=== PATIENT | female | born 1935 | race Caucasian/White ===

== ENCOUNTER → 2016-08-01 | Outpatient (CLI) | payer OTHER, BC | LOC: BHCLAF 13:15 | PROVIDERS: ATTEND Internal Medicine Cardiovascular Disease | DX: I48.91 Unspecified atrial fibrillation (principal); I47.1 Supraventricular tachycardia | CPT/HCPCS: 93005-PO ==

== ENCOUNTER → 2016-08-10 | Outpatient (CLI) | payer OTHER, BC | LOC: BHFA 09:00 | PROVIDERS: ATTEND Internal Medicine Cardiovascular Disease | DX: I48.91 Unspecified atrial fibrillation (principal) ==

== ENCOUNTER → 2016-09-11 | Outpatient (CLI) | payer OTHER, BC | LOC: FIMAGING 07:43 | DX: Z12.31 Encounter for screening mammogram for malignant neoplasm of breast (principal); Z85.3 Personal history of malignant neoplasm of breast | CPT/HCPCS: G0202 ==

== ENCOUNTER → 2017-08-03 | Outpatient (CLI) | payer OTHER, BC | LOC: FIMAGING 13:03 | PROVIDERS: ATTEND Internal Medicine Endocrinology, Diabetes & Metabolism | DX: Z13.820 Encounter for screening for osteoporosis (principal); M85.89 Other specified disorders of bone density and structure, multiple sites; M41.80 Other forms of scoliosis, site unspecified; Z85.3 Personal history of malignant neoplasm of breast ==

== ENCOUNTER 2017-08-21 08:22 | Observation (INO) | payer OTHER, BC ==
--- NOTE | 2017-08-16 23:53 | GDS ---
[f rep st] DISCHARGE SUMMARY CURRENT COMPLAINT: Right knee pain. HISTORY OF PRESENT ILLNESS: The patient is an 82-year-old female with a long history of right knee pain despite multiple conservative management. She wishes to have surgery in order to resolve the problem. ALLERGIES: To drugs include Zantac. CURRENT MEDICATIONS: Aspirin, Cartia, levothyroxine. CURRENT MEDICAL PROBLEMS: Include anemia, arthritis, cancer, heart disease, osteoporosis, and thyroid problems. PAST SURGICAL HISTORY: Prior surgeries include a cardioversion, lumpectomy, left total knee, myxoma removal. SOCIAL HISTORY: She is a former smoker. Social drinker. PHYSICAL EXAMINATION: EYES: Pupils are equal, round, and reactive to light. CHEST: Clear to auscultation. HEART: Regular rate and rhythm. ABDOMEN: Soft and nontender. EXTREMITIES: Her right knee reveals crepitus to the medial compartment, as well as osteophytic spurring and mild varus . IMAGING STUDIES: X-ray exam reveals [id number] osteoarthritic changes. ASSESSMENT AND PLAN: The patient right knee osteoarthritis. The plan is to take her to the operating room and undergo a right total knee arthroplasty. /[id number]/MODL MTDD
--- NOTE | 2017-08-21 07:18 | PDHPUP ---
History & Physical Update H&P update statement: This history and physical update is based on an assessment of the patient which was completed after admission or registration (within 24 hours), but prior to the surgery/procedure. H&P update: H&P reviewed & patient examined, no change in patient's condition since H&P completed
[~2017-08-21 08:22] MED LIST: BACITRACIN 50,000 UNITS/10 ML SYR IRR ONE; BUPIVACAINE/EPI 0.5% 30 ML SDV ONE; CALCIUM CHLORIDE 1 GM/10 ML INJ ONE; POLYMYXIN B SULFATE 500,000 UNIT/10 ML SYR IRR ONE; ROPIVACAINE 0.2% 80 MG, EPINEPHrine 0.2 MG, KETOROLAC TROMETHAMINE 30 MG, morphINE 10 M... IU ONE; THROMBIN (BOVINE) 5,000 UNIT VIAL TP ONE; TRANEXAMIC ACID 3,000 MG in NS (SYRINGE) 50 ML IRR ONE; ceFAZolin 2 GM/SWFI 2 GM/20 ML SYR IVP ONE
[2017-08-21] MEDS ORDERED: LR 1,000 ML IV ONE (08:47)
[2017-08-21] MEDS ORDERED: ceFAZolin 2 GM/SWFI 20 ML SYR IVP ONE (09:39)
[2017-08-21] MEDS ORDERED: MIDAZOLAM 2 MG/2 ML VIAL IVP ONE (10:11)
--- NOTE | 2017-08-21 10:11 | PDANEPAE ---
ANE History of Present Illness here for R TKA ANE Past Medical History - Cardiovascular History Hx Hypertension: No Hx Arrhythmias: Yes Hx Chest Pain: No Hx Coronary Artery / Peripheral Vascular Disease: No Hx CHF / Valvular Disease: No Hx Palpitations: No Cardiovascular History Comment: PSVT AND ATRIAL FLUTTER. PAC'S - Pulmonary History Hx COPD: No Hx Asthma/Reactive Airway Disease: No Hx Recent Upper Respiratory Infection: No Hx Oxygen in Use at Home: No Hx Sleep Apnea: No Sleep Apnea Screening Result - Last Documented: Negative Pulmonary History Comment: INTERMITTENT DYSPNEA WITH EXERTION - Neurologic History Hx Cerebrovascular Accident: No Hx Seizures: No Hx Dementia: No - Endocrine History Hx Diabetes: No Endocrine History Comment: HYPOTHYROID - Renal History Hx Renal Disorders: No - Liver History Hx Hepatic Disorders: No - Neurological & Psychiatric Hx Hx Neurological and Psychiatric Disorders: No - Cancer History Hx Cancer: Yes Cancer History Comment: BREAST. RADIATION AND CHEMO - Congenital Disorder History Hx Congenital Disorders: No Congenital History Comment: Breast cancer - GI History Hx Gastrointestinal Disorders: Yes Gastrointestinal History Comment: CONSTIPATION - Other Health History Other Health History: DERMATITIS VARIOUS LOCATION - Chronic Pain History Chronic Pain: Yes (LT KNEE) - Surgical History Prior Surgeries: ABLATION X 2 08/2013 AND 12/2014. PARATHYROIDECTOMY. 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 TONSILLECTOMY. RT BREAST LUMPECTOMY 2006 ANE Review of Systems Review of Systems: - Exercise capacity METS (RN): 4 METS ANE Patient History - Allergies Allergies/Adverse Reactions: ranitidine HCl [From Zantac] Allergy (Mild, Verified 03/28/13 11:49) Rash - Home Medications Home Medications: Cyanocobalamin [Vitamin B12 1000MCG/ML (*)] 100 mcg IM Q30D 09/08/13 [Last Taken 08/14/17] Levothyroxine [Synthroid 88 mcg (*)] 88 mcg PO DAILY06 09/08/13 [Last Taken 05:30] Loratadine [Claritin 10 mg] 10 mg PO DAILY 09/08/13 [Last Taken 1 Day Ago ~08/20] Diltiazem Cd [Cardizem ER 120 MG (*)] 120 mg PO HS 12/30/13 [Last Taken 1 Day Ago ~08/20/17] Aspirin [Aspirin 81mg (*)] 81 mg PO DAILY 08/02/17 [Last Taken 08/14/17] Cholecalciferol Vit D3 [Vitamin D3 (*)] 1,000 units PO DAILY 08/02/17 [Last Taken 08/14/17] Glucosamine/Chondroitin [Glucosamine/Chondroitin (*)] 1 each PO BID 08/02/17 [ Last Taken 08/14/17] Herbals/Supplements -Info Only 1 ea PO DAILY 08/02/17 [Last Taken 08/14/17] - NPO status NPO Since - Liquids (Date): 08/21/17 NPO Since - Liquids (Time): 07:30 NPO Since - Solids (Date): 08/20/17 NPO Since - Solids (Time): 18:00 - Smoking Hx Smoking Status: Never smoked - Family Anes Hx Family Hx Anesthesia Complications: none ANE Labs/Vital Signs - Vital Signs Blood Pressure: 124/89 Heart Rate: 64 Respiratory Rate: 18 O2 Sat (%): 94 Height: 165.1 cm Weight: 72.575 kg ANE Physical Exam - Airway Neck exam: FROM Mallampati Score: Class 1 Mouth exam: normal dental/mouth exam - Pulmonary Pulmonary: no respiratory distress - Cardiovascular Cardiovascular: regular rate and rhythym - ASA Status ASA Status: II ANE Anesthesia Plan Anesthesia Plan: spinal Regional Anesthesia: adductor canal FNB
[2017-08-21] MEDS ORDERED: MIDAZOLAM 2 MG/2 ML VIAL ONE (10:17)
[2017-08-21] MEDS ORDERED: fentaNYL 100 MCG/2 ML INJ ONE ×3 (10:21→13:11)
[2017-08-21] MEDS ORDERED: PROPOFOL/EMULSION 500 MG/50 ML BOTTLE IV ONE (10:21)
[2017-08-21] MEDS ORDERED: oxyCODONE IR 5 MG TAB PO PRN ×2 (11:26→12:27)
[2017-08-21] MEDS ORDERED: HYDROmorphONE/DILAUDID 2 MG/ML INJ IVP PRN (11:26)
[2017-08-21] MEDS ORDERED: NALOXONE HCL 0.4 MG/ML INJ IVP PRN (11:26)
[2017-08-21] MEDS ORDERED: ONDANSETRON 4 MG/2 ML VIAL IVP PRN (11:26)
[2017-08-21] MEDS ORDERED: DEXAMETHASONE 4 MG/ML VIAL IVP PRN (11:26)
[2017-08-21] MEDS ORDERED: HYDROCODONE/APAP 5/325 TAB PO PRN (11:26)
--- NOTE | 2017-08-21 12:26 | POSTOPPROG ---
Post Op Note Date of Operation: 08/21/17 Surgeon: Dominga Dixon Battery Filler: kayla Anesthesiologist: antione Anesthesia: Epidural, IV Sedation Pre-op Diagnosis: r knee oa Procedure: r tkr Inf/Abcess present in the surg proc area at time of surgery?: No Depth: Deep Incisional (Fascial) EBL: 100-500
[2017-08-21] MEDS ORDERED: BISACODYL 10 MG SUPP PR PRN (12:27)
[2017-08-21] MEDS ORDERED: POLYETHYLENE GLYCOL 3350 17 GM PKT PO PRN (12:27)
[2017-08-21] MEDS ORDERED: LACTULOSE 20 GM/30 ML UDCUP PO PRN (12:27)
[2017-08-21] MEDS ORDERED: ONDANSETRON DISINTEGRATING 4 MG TAB PO PRN (12:27)
[2017-08-21] MEDS ORDERED: METOCLOPRAMIDE 10 MG/2 ML VIAL IVP PRN (12:27)
[2017-08-21] MEDS ORDERED: PROMETHAZINE HCL 25 MG/ML INJ IVP PRN (12:27)
[2017-08-21] MEDS ORDERED: CYCLOBENZAPRINE 10 MG TAB PO PRN (12:27)
[2017-08-21] MEDS ORDERED: TEMAZEPAM 15 MG CAP PO PRN (12:27)
[2017-08-21] MEDS ORDERED: DIPHENOXYLATE/ATROPINE LOMOTIL 1 TAB PO PRN (12:27)
[2017-08-21] MEDS ORDERED: TAPENTADOL HCL 50 MG TAB PO PRN (12:27)
[2017-08-21] MEDS ORDERED: diphenhydrAMINE 25 MG CAP PO PRN (12:27)
[2017-08-21] MEDS ORDERED: KETOROLAC 30 MG/1 ML SDV IVP PRN (12:27)
[2017-08-21] MEDS ORDERED: MAGNESIUM HYDROXIDE 30 ML UDCUP PO PRN (12:27)
[2017-08-21] MEDS ORDERED: PROMETHAZINE HCL 25 MG SUPPR PR PRN (12:27)
[2017-08-21] MEDS ORDERED: KETOROLAC 15 MG/1 ML SDV ONE (13:11)
[2017-08-21] MEDS: fentaNYL 100 MCG/2 ML INJ IVP PRN ×2 (13:12→13:22)
[2017-08-21] MEDS ORDERED: ONDANSETRON 4 MG/2 ML VIAL ONE (13:24)
--- NOTE | 2017-08-21 13:24 | GOP ---
[f rep st] OPERATIVE REPORT DATE OF OPERATION: 08/21/2017 SURGEON: Dominga Dixon MD SUPPLY SPECIALIST: Maynor Alva, JOSEA, LSA, whose presence was medically necessary. ANESTHESIA: Epidural plus sedation. PREOPERATIVE DIAGNOSIS: Right knee osteoarthritis. POSTOPERATIVE DIAGNOSIS: Right knee osteoarthritis. PROCEDURE PERFORMED: Right total knee arthroplasty. FINDINGS: INDICATIONS: This is an 82-year-old female with a several-year history of right knee pain worsening with use and with time despite multiple conservative measures. X-ray exam reveals [id number] osteo arthritic changes. She wishes to have surgery in order to resolve the problem. DESCRIPTION OF PROCEDURE: Patient was brought to the operating room after the right side had been id entified as the correct side by the patient, nurse, and physician. Once in the operating room, she w as placed under epidural nerve block, then IV sedation. She was then placed supine on the operating table. Tourniquet was placed around the upper portion of the right thigh. Right lower extremity was then sterilely prepped and draped in usual fashion using GSI solution. Once prepped and draped, oliveira b was exsanguinated, and tourniquet inflated to 250 mmHg. A linear incision was made on the anterior portion of the knee 1 handbreadth above and below the patella, with sharp dissection carried down th rough the skin and subcutaneous layers, with bleeding controlled using electrocautery. A medial para patellar approach was made through the extensor mechanism, with patella brought to the side but not e verted. She was noted to have [id number] osteoarthritic changes of the patellofemoral compartment, and the medial compartment, and grade III chondral changes laterally. The ACL, as well as the media l and lateral menisci were removed, as well as osteophytes at the femur. A drill hole was made 1 cm anterior to the intercondylar notch with an intramedullary guide placed within the femur. The cuttin g guide was set in 5 degrees of valgus and set to remove 10 mm of bone. Once pinned into place, the intramedullary guide was removed. An oscillating saw was used to remove the distal end of the femur until achieving a flat cut. Cartilage was then taken off the posterior condyles, and a sizing guide was placed on the cut surface of the femur, noting a size 7 seemed to fit best. Therefore, drill hol es were made, and a size 7 4-in-1 cutting block was put into place. The anterior, posterior, and luis m mfer cuts were made. A size 7 trial was put into place, noted to fit securely. The leg was able to achieve near full extension. Trial was removed. The knee was brought back to maximal flexion, and the tibia was subluxed anterior ly. An external tibial guide was put into place and set in neutral varus-valgus and slight posterior slope. Once it was pinned into place, the was re-used to ensure proper positioning. Cut ting guide was put into place. An oscillating saw was used to removed the proximal portion of the ti yrn. Trial femur, tibia, and poly liner were put into place. The knee was able to achieve full exte nsion; therefore, the trials were removed. The knee was brought to maximal flexion, and tibia sublux ed anteriorly. Multiple trials were placed on the tibia, and a size 6 seemed to fit best. Therefore , a size 6 plate was pinned into place. Guide was then put into place, and the intramedullary reamer and a keel punch were then passed through the guides into the tibia. The trials were then removed. The leg was brought to full extension. The patella was then everted a nd was measured to be 20 mm in thickness. Oscillating saw was used to remove the posterior portion o f the patella, leaving 14 mm of bone. A 38 mm trial seemed to fit best; therefore, lug holes drilled for a 38 mm patellar button. All cut surfaces of bone were then thoroughly irrigated with an antibi otic solution using pulsatile lavage while cement was being mixed. Once cement was doughy, it was pl aced on the proximal portion of the tibia with a size 6 Attune tibial component from DeP[employer] put into p lace. Cement was placed on the posterior skids of the femoral component with cement placed on the di stal anterior portion of the cut surface of the bone, and a size 7 right cruciate-retaining Attune co mponent from [employer] was put in place. Excess cement was removed using Bovina elevator. A poly-liner w as placed in the tibial tray, and the knee was brought to full extension under pressurized cement. C ement was placed on the cut surface of the patella, with a 38 mm patellar button clamped into place a nd excess cement removed using Bovina elevator. Once completed, any excess cement was removed using a combination of osteotome and rongeur. Once hardened, multiple trials were placed in the tray, notin g that a 10 mm polyethylene liner seemed to fit best. It was therefore snapped into place. The tour niquet was released at 62 minutes. Bleeding was controlled using electrocautery. Tranexamic acid wa s irrigated through the wound. The wound was then closed with 0 Vicryl suture for the extensor mecha nism. The posterior capsule and extensor mechanism had been injected with joint cocktail. Once the extensor mechanism was closed, Plasma Gel was injected intra-articularly. 0 Vicryl and 2-0 Vicryl gonzalez ture were used to close the subcutaneous layers, and Plasma Gel was injected external to the extensor mechanism, and then a 3-0 V-Loc suture in a running subcuticular stitch was used to close the skin. The wound was dressed with Steri-Strips, Xeroform, 4x4's, and wrapped in Kerlix. Leg was completely undraped in the operating room, tourniquet removed from the thigh, and Edgardo wrap placed around the kn ee. Patient was then awakened, transferred onto a stretcher, and sent to recovery room in good condi tion. TOURNIQUET TIME: 62 minutes. /[id number]/MODL
[2017-08-21] MEDS: ONDANSETRON 4 MG/2 ML VIAL IVP PRN ×2 (14:03→18:34)
[2017-08-21] MEDS: LR 1,000 ML IV SCH ×2 (14:03→21:59)
--- NOTE | 2017-08-21 15:34 | POSTANESTH ---
Post Anesthetic Evaluation Cardiovascular Status: Normal, Stable Respiratory Status: Normal, Stable Level of Consciousness/Mental Status: Can Participate in Eval Pain Control: Adequate, Prn Tx Ordered, Inadeq, Add Tx Required Nausea/Vomiting Control: Inadeq, Add Tx Reqired (some N/V otherwise doing well) Complications Possibly Related to Anesthesia: None Noted
[2017-08-21] MEDS: ceFAZolin 2 GM/SWFI 2 GM/20 ML SYR IVP SCH (17:32)
[2017-08-21] MEDS: ACETAMINOPHEN 325 MG TAB PO SCH (18:06)
[2017-08-21] MEDS: traMADol 50 MG TAB PO SCH (18:07)
[2017-08-21] MEDS ORDERED: DILTIAZEM CD 120 MG CAP PO SCH (21:00)
[2017-08-21] MEDS: FAMOTIDINE 20 MG TAB PO SCH (22:00)
[2017-08-21] MEDS: SENNOSIDES/DOCUSATE SODIUM TAB PO SCH (22:00)
[2017-08-22] MEDS: ACETAMINOPHEN 325 MG TAB PO SCH ×3 (00:03→12:08)
[2017-08-22] MEDS: traMADol 50 MG TAB PO SCH ×3 (00:03→12:08)
[2017-08-22] MEDS: ceFAZolin 2 GM/SWFI 2 GM/20 ML SYR IVP SCH (01:42)
[2017-08-22] MEDS ORDERED: LEVOTHYROXINE 88 MCG TAB PO SCH (06:00)
[2017-08-22] MEDS: FAMOTIDINE 20 MG TAB PO SCH (08:52)
[2017-08-22] MEDS: SENNOSIDES/DOCUSATE SODIUM TAB PO SCH (08:53)
[2017-08-22] MEDS ORDERED: CETIRIZINE 10 MG TAB PO SCH (09:00)
[2017-08-22] MEDS ORDERED: RIVAROXABAN 10 MG TAB PO SCH (09:00)
[2017-08-22] MEDS ORDERED: NON-FORMULARY NEW DRUG (Loratadine [Claritin 10 Mg] 10 MG) PO SCH (09:00)
--- NOTE | 2017-08-22 10:18 | SOAPPROG ---
SOLISA Progress Note Assessment/Plan: Assessment: Plan: - d/c home 08/22/17 10:18 Subjective: Doing well, pain improved. Objective: Vital Signs Temp Pulse Resp BP Pulse Ox 36.7 C 55 L 14 119/56 L 100 08/22/17 07:11 08/22/17 07:11 08/22/17 07:11 08/22/17 07:11 08/22/17 07:11 Laboratory Results 08/22/17 04:58 08/21/17 08/22/17 08/23/17 05:59 05:59 05:59 Intake Total 3000 Output Total 1150 Balance 1850 wound cdi, nvi - Time Spent With Patient Time Spent With Patient: 15 - Pending Discharge Pending Discharge Within 24 Hours: Yes Pending Discharge Within 48 Hours: No Pending Discharge Date: 08/23/17 Pending Discharge Time: 11:00 ICD10 Worksheet Patient Problems: Problems Problem Status Onset Atrial fibrillation or flutter Acute
--- NOTE | 2017-08-22 10:24 | PDIAF ---
- Diagnosis Code Status: Full Code - Medication Management Discharge Medications: Medications to Continue on Transfer Cyanocobalamin [Vitamin B12 1000MCG/ML (*)] 100 mcg IM Q30D 09/08/13 [Last Taken 08/19/17] Levothyroxine [Synthroid 88 mcg (*)] 88 mcg PO DAILY06 09/08/13 [Last Taken 05:30] Loratadine [Claritin 10 mg] 10 mg PO DAILY 09/08/13 [Last Taken 1 Day Ago ~08/20] Diltiazem Cd [Cardizem ER 120 MG (*)] 120 mg PO HS 12/30/13 [Last Taken 1 Day Ago ~08/20/17] Aspirin [Aspirin 81mg (*)] 81 mg PO DAILY 08/02/17 [Last Taken 08/14/17] Cholecalciferol Vit D3 [Vitamin D3 (*)] 1,000 units PO DAILY 08/02/17 [Last Taken 08/14/17] Glucosamine/Chondroitin [Glucosamine/Chondroitin (*)] 1 each PO BID 08/02/17 [ Last Taken 08/14/17] Herbals/Supplements -Info Only 1 ea PO DAILY 08/02/17 [Last Taken 08/14/17] Acetaminophen [Tylenol 325mg (*)] 650 mg PO Q6HRS tab 08/22/17 [Last Taken Unknown] Rivaroxaban [Xarelto 10mg (*)] 10 mg PO DAILY tab 08/22/17 [Last Taken Unknown] traMADol [Ultram 50 mg (*)] 50 mg PO Q6HRS tab 08/22/17 [Last Taken Unknown] Discharge Medications: Refer to the Discharge Home Medication list for PRN reason. PICC Care - Routine: N/A - Orders Services needed: Physical Therapy Isolation Type: None Diet Recommendation: no restrictions on diet Diet Texture: Regular Texture Diet Wound Care Instructions: keep dressing on, will change in office, keep dry - Follow Up Care Current Providers and Referrals: Nena Thomas MD [Primary Care Provider] -
[2017-08-22 11:48] VITALS: BP 112/57
--- NOTE | 2017-08-22 11:48 | ASMTLACE ---
KELSEY Length of stay for Answers: 1 day current admission Comorbidities - select Answers: Opioid dependence all that apply / Chronic pain # of Emergency department Answers: 0 visits in the last 6 months Score: 5 Date Signed: 08/22/2017 11:47 AM Electronically Signed By:NAT Schwarz
--- NOTE | 2017-08-22 11:53 | ASMTCMCOM ---
CM Note CM Note Notes: Pt s/p OA of knee. PT rec [facility]HC, pt agreeable and chooses [facility]. Orders sent in [employer]. Pt address/phone verified. Date Signed: 08/22/2017 11:52 AM Electronically Signed By:NAT Schwarz
--- NOTE | 2017-08-22 15:49 | ASDISCHSUM ---
Discharge Information Plan Status:Home with Home Health Medically Cleared to Leave: Discharge Date:08/22/2017 02:13 PM D/C Disposition:Home Health Service ADT D/C Disposition:Home, Routine, Self-Care Projected Discharge Date:08/22/2017 11:00 AM Transportation at D/C: Discharge Delay Reason: Follow-Up Date:08/22/2017 11:00 AM Discharge Slot: Final Diagnosis: Placement Information Referral Type:*Home Health Care Services Referral ID:[id number] Provider Name:[facility] [place] Address 1:[address] [address] Address 2: City:[place] Selection Factors: State:[place] Patient Contact Information Contact Name:ELANA Relationship:Daughter Address: City:[place] Alternate Phone: State/Zip Code:[place] [address] Email: Financial Information Financial Class:Medicare Primary Plan Desc:MEDICARE INPATIENT Primary Plan Number:[id number] Secondary Plan Desc: OUT OF [facility] Secondary Plan Number:[id number] Assessment Information LACE LACE Length of stay for Answers: 1 day current admission Comorbidities - select Answers: Opioid dependence all that apply / Chronic pain # of Emergency department Answers: 0 visits in the last 6 months Score: 5 Date Signed: 08/22/2017 11:47 AM Electronically Signed By:NAT Schwarz BC CM Progress Note CM Note CM Note Notes: Pt s/p OA of knee. PT rec [facility], pt agreeable and chooses [facility]. Orders sent in [employer]. Pt address/phone verified. Date Signed: 08/22/2017 11:52 AM Electronically Signed By:NAT Schwarz Intervention Information
== END 2017-08-22 14:13 | disposition home health service (06) ==
LOC: INTOOBSV 08:22 → F3N 08:22
PROVIDERS: ADMIT Orthopaedic Surgery; ATTEND Orthopaedic Surgery
DX: M17.11 Unilateral primary osteoarthritis, right knee (principal); M85.9 Disorder of bone density and structure, unspecified; D64.9 Anemia, unspecified; I25.10 Atherosclerotic heart disease of native coronary artery without angina pectoris; M81.0 Age-related osteoporosis without current pathological fracture; E03.9 Hypothyroidism, unspecified; I48.91 Unspecified atrial fibrillation; Z79.82 Long term (current) use of aspirin; Z87.891 Personal history of nicotine dependence; Z85.3 Personal history of malignant neoplasm of breast; Z96.652 Presence of left artificial knee joint
CPT/HCPCS: 0232T; 27447; 73560; 97110; 97116; 97161; 97165; G8978; G8979; G8980; G8987; G8988; G8989; C1713; J0171; J0690; J1885; J2250; J2270; J2405; J2550; J2704; J2795; J3010

== ENCOUNTER 2018-09-30 10:49 | Observation (INO) | payer OTHER, MEDICARE | END 2018-10-01 13:59 | disposition home or self-care (01) | LOC: CED 10:49 → CEDHOLD 12:28 → F2W 14:00 ==